=== PATIENT | female | born 1975 | race Caucasian/White ===

== ENCOUNTER 2016-05-16 15:36 | Emergency (ER) | payer SELFPAY ==
[~2016-05-16] VITALS: Ht 167.6 cm; Wt 78.0 kg
[2016-05-16 15:40] VITALS: Ht 167.6 cm; Wt 78.0 kg
== END 2016-05-16 18:15 | disposition left against medical advice (07) ==
LOC: FTE 15:36
DX: Z53.21 Procedure and treatment not carried out due to patient leaving prior to being seen by health care provider (principal)

== ENCOUNTER 2017-11-21 12:06 | Emergency (ER) | END 2017-11-21 16:15 | disposition home or self-care (01) ==